=== PATIENT | male | born 1950 | race Two or more races ===

== ENCOUNTER 2018-03-04 18:09 | Emergency (ER) | payer OTHER ==
[~2018-03-04] VITALS: Ht 162.6 cm; Wt 90.7 kg
[2018-03-04] MEDS ORDERED: ASPIRIN81 MG (18:24)
[2018-03-04] MEDS ORDERED: AVAPRO150 MG (18:25)
[2018-03-04] MEDS ORDERED: COLCHICINE0.6 MG (18:25)
[2018-03-04] MEDS ORDERED: HYDROCHLOROTH12.5 M1 (18:25)
[2018-03-04] MEDS ORDERED: NORVASC5 MG (18:26)
== END 2018-03-04 21:07 | disposition home or self-care (01) ==
LOC: ER 18:09
DX: R60.0 Localized edema (principal); M10.9 Gout, unspecified

== ENCOUNTER 2019-12-07 14:42 | Emergency (ER) | payer OTHER ==
[~2019-12-07] VITALS: Ht 162.6 cm; Wt 93.0 kg
[~2019-12-07 14:42] MED LIST: ASPIRIN81 MG; AVAPRO150 MG; COLCHICINE0.6 MG; HYDROCHLOROTH12.5 M1; NORVASC5 MG
[2019-12-07] MEDS ORDERED: FISH OIL 1,2001 EAC4 PO (15:12)
[2019-12-07] MEDS ORDERED: VITAMIN C1000 MG PO (15:12)
[2019-12-07] MEDS ORDERED: NORFLEX100MG PO (16:13)
[2019-12-07] MEDS ORDERED: DICLOFENAC SODI75 MG PO (16:13)
== END 2019-12-07 19:00 | disposition home or self-care (01) ==
LOC: ER 14:42
DX: M54.5 Low back pain (principal)

== ENCOUNTER 2020-06-06 13:24 | Outpatient (CLI) | payer OTHER ==
[~2020-06-06 13:24] MED LIST changes: +DICLOFENAC SODI75 MG PO; +FISH OIL 1,2001 EAC4 PO; +NORFLEX100MG PO; +VITAMIN C1000 MG PO
== END 2020-06-06 13:53 | disposition home or self-care (01) ==
LOC: MRI 13:24
PROVIDERS: ATTEND Internal Medicine Rheumatology
DX: M23.303 Other meniscus derangements, unspecified medial meniscus, right knee (principal); M23.300 Other meniscus derangements, unspecified lateral meniscus, right knee
CPT/HCPCS: 73721

== ENCOUNTER 2020-09-25 11:07 | Outpatient (CLI) | payer OTHER | END 2020-09-25 11:16 | disposition home or self-care (01) | LOC: RAD 11:07 | PROVIDERS: ATTEND Orthopaedic Surgery | DX: M25.561 Pain in right knee (principal); M25.562 Pain in left knee ==

== ENCOUNTER 2020-10-22 10:00 | Inpatient (IN) | payer OTHER ==
[~2020-10-22] VITALS: Ht 162.6 cm; Wt 83.9 kg
== END 2020-10-31 14:31 | DRG 470 ==
LOC: O/R 10-29 06:23 → SURG 10-29 06:23 → SURH 10-29 10:00 → SURG 10-29 11:38
PROVIDERS: ADMIT Orthopaedic Surgery; ATTEND Orthopaedic Surgery
PROC: 0SRC0J9 Replacement of Right Knee Joint with Synthetic Substitute, Cemented, Open Approach (ICD-10-PCS; principal; 2020-10-29 10:15)
DX: M17.11 Unilateral primary osteoarthritis, right knee (principal); D62 Acute posthemorrhagic anemia; M85.661 Other cyst of bone, right lower leg; M10.062 Idiopathic gout, left knee

== ENCOUNTER 2021-03-07 07:45 | Outpatient (CLI) | payer OTHER | END 2021-03-07 07:47 | disposition home or self-care (01) | LOC: TOM 07:45 | PROVIDERS: ATTEND Internal Medicine Hematology & Oncology | DX: D62 Acute posthemorrhagic anemia (principal); I10 Essential (primary) hypertension; M10.00 Idiopathic gout, unspecified site; M17.0 Bilateral primary osteoarthritis of knee; R19.5 Other fecal abnormalities; R97.0 Elevated carcinoembryonic antigen [CEA]; K62.5 Hemorrhage of anus and rectum | CPT/HCPCS: 71260; 74177; Q9965 ==

== ENCOUNTER 2021-04-25 07:50 | Outpatient (CLI) | payer OTHER | END 2021-04-25 07:55 | disposition home or self-care (01) | LOC: RAD 07:50 | PROVIDERS: ATTEND Urology | DX: N20.1 Calculus of ureter (principal) ==

== ENCOUNTER 2021-05-01 07:00 | Inpatient (IN) | payer OTHER ==
[~2021-05-01] VITALS: Ht 162.6 cm; Wt 86.2 kg
[2021-05-01] MEDS ORDERED: LEVOTHYROXINE25 MCG PO (08:37)
[2021-05-08] MEDS ORDERED: FEBUXOSTAT40 MG (08:12)
[2021-05-08] MEDS ORDERED: FAMOTIDINE20 MG (08:13)
[2021-05-08] MEDS ORDERED: VALSARTAN160 MG (08:13)
[2021-05-08] MEDS ORDERED: ATORVASTATIN CA20 MG (08:13)
[2021-05-08] MEDS ORDERED: ST. JOSEPH ASPI81 M2 (08:14)
[2021-05-08] MEDS ORDERED: FOLIC ACID1 MG (08:14)
[2021-05-13] MEDS ORDERED: PERCOCET 5-3251 EACH PO (09:44)
== END 2021-05-13 14:19 | disposition home or self-care (01) | DRG 330 ==
LOC: O/R 05-08 05:28 → SURH 05-08 07:00 → SURG 05-08 11:18
PROVIDERS: ADMIT Surgery; ATTEND Surgery
PROC: 07TB4ZZ Resection of Mesenteric Lymphatic, Percutaneous Endoscopic Approach (ICD-10-PCS; 2021-05-08)
PROC: 3E0F7SF Introduction of Other Gas into Respiratory Tract, Via Natural or Artificial Opening (ICD-10-PCS; 2021-05-08)
PROC: 0DTF4ZZ Resection of Right Large Intestine, Percutaneous Endoscopic Approach (ICD-10-PCS; principal; 2021-05-08 07:00)
PROC: B54DZZZ Ultrasonography of Bilateral Lower Extremity Veins (ICD-10-PCS; 2021-05-12)
DX: C18.0 Malignant neoplasm of cecum (principal); T81.41XA Infection following a procedure, superficial incisional surgical site, initial encounter; L03.316 Cellulitis of umbilicus; R59.0 Localized enlarged lymph nodes; K66.0 Peritoneal adhesions (postprocedural) (postinfection); D50.0 Iron deficiency anemia secondary to blood loss (chronic); M10.061 Idiopathic gout, right knee; Z96.651 Presence of right artificial knee joint

== ENCOUNTER 2024-04-03 07:10 | Outpatient (CLI) | payer OTHER ==
[~2024-04-03 07:10] MED LIST changes: +ATORVASTATIN CA20 MG; +FAMOTIDINE20 MG; +FEBUXOSTAT40 MG; +FOLIC ACID1 MG; +LEVOTHYROXINE25 MCG PO; +PERCOCET 5-3251 EACH PO; +ST. JOSEPH ASPI81 M2; +VALSARTAN160 MG
== END 2024-04-03 07:12 | disposition home or self-care (01) ==
LOC: NUCLEAR 07:10
PROVIDERS: ATTEND Specialist
DX: I11.9 Hypertensive heart disease without heart failure (principal)
CPT/HCPCS: 78452; 93017; A9500

== ENCOUNTER → 2024-11-10 07:05 | Outpatient (CLI) | payer OTHER | END | disposition home or self-care (01) | LOC: NUCLEAR 07:00 | PROVIDERS: ATTEND Specialist | DX: I11.9 Hypertensive heart disease without heart failure (principal) | CPT/HCPCS: 78452; 93017; A9500 ==